=== PATIENT | female | born 1975 | race Caucasian/White ===

== ENCOUNTER 2016-10-26 16:14 | Outpatient (CLI) ==
[2016-06-28 21:43] VITALS: BMI 29.7
[2016-10-26 17:08] LABS: FLU INTERNAL QC INTERNAL QC VALID; RAPID FLU A NEGATIVE (NEGATIVE); RAPID FLU B NEGATIVE (NEGATIVE)
== END 2016-10-26 16:15 | disposition home or self-care (01) ==
LOC: LAB 16:14
PROVIDERS: ATTEND Nurse Practitioner Family
DX: J02.9 Acute pharyngitis, unspecified (principal); R05 Cough
CPT/HCPCS: 87651; 87804; 87880

== ENCOUNTER 2016-12-15 14:08 | Outpatient (CLI) ==
[2016-06-28 21:43] VITALS: BMI 29.7
[2016-12-15 14:32] LABS: BILIRUBIN,URINE Negative (NEGATIVE); KETONES,URINE Negative (NEGATIVE); LEUKOCYTE ESTERASE ,URINE 2+ (NEGATIVE); NITRITE,URINE Negative (NEGATIVE); PH,URINE 8.5 (5-9); PROTEIN,URINE 1+ (NEGATIVE); URINE, BLOOD Trace-lysed (NEGATIVE)
[2016-12-15 14:36] LABS: BASOPHILS # (AUTO) 0.1 K/uL (0-0.2); BASOPHILS % (AUTO) 0.4 % (0.0-3.0); EOSINOPHILS % (AUTO) 0.2 % (0.0-7.0); HEMATOCRIT 41.3 % (37.0-47.0); HEMOGLOBIN 14.2 g/dl (12.0-16.0); IMMATURE GRANULOCYTE % (AUTO) 0.2 % (0.0-5.0); LYMPHOCYTES # (AUTO) 0.8 K/uL (0.60-3.4); LYMPHOCYTES % (AUTO) 6.3 (10.0-50.0); MEAN CORPUSCULAR HEMOGLOBIN 28.2 pg (27.0-31.0); MEAN CORPUSCULAR HGB CONC 34.4 (31.8-35.4); MEAN CORPUSCULAR VOLUME 81.9 fl (81.0-99.0); MONOCYTES # (AUTO) 0.8 K/uL (0.4-2.0); MONOCYTES % (AUTO) 6.1 (0-10); NEUTROPHILS % (AUTO) 86.8; PLATELET COUNT 248 10^3/uL (140-440); RED BLOOD COUNT 5.04 10^6/ul (4.20-5.40)
[2016-12-15 14:37] LABS: ADD URINE MICROSCOPIC YES
[2016-12-15 14:41] LABS: BACTERIA,URINE TRACE (NOT PRESENT)
[2016-12-15 14:44] LABS: FLU INTERNAL QC INTERNAL QC VALID; RAPID FLU A NEGATIVE (NEGATIVE); RAPID FLU B NEGATIVE (NEGATIVE)
--- NOTE | 2016-12-15 14:53 | DI ---
EXAM: KUB. History: Hematuria. Comparison: None available. Findings: Moderate colonic stool. Nonobstructive bowel gas pattern. No free intraperitoneal air. No acute osseous abnormalities. Evaluation of the renal shadows is limited due to obscuration by cristy wel gas. No definite radiopaque urinary tract calculi are identified. Impression: No acute findings. No definite radiopaque urinary tract calculi.
[2016-12-15 17:10] LABS: POTASSIUM 3.6 mmol/L (3.5-5.10)
[2016-12-15 17:11] LABS: ALBUMIN 4.2 g/dL (3.4-5.0); ALBUMIN/GLOBULIN RATIO 1.4; ANION GAP 12.6; BILIRUBIN,TOTAL 0.8 mg/dL (0.00-1.20); BUN/CREATININE RATIO 8.75; CREATININE 0.8 mg/dL (0.60-1.30); TOTAL PROTEIN 7.2 g/dL (6.4-8.2)
== END 2016-12-15 14:09 | disposition home or self-care (01) ==
LOC: RAD 14:08
PROVIDERS: ATTEND Nurse Practitioner Family
DX: R31.9 Hematuria, unspecified (principal); R30.0 Dysuria; R50.9 Fever, unspecified; R52 Pain, unspecified
CPT/HCPCS: 36415; 80053; 81001; 85025; 87086; 87186; 87804

== ENCOUNTER 2017-06-01 21:51 | Emergency (ER) ==
--- NOTE | 2017-06-01 21:55 | ED.PDOC ---
General ED Provider: Dr. SHARMILA OCHOA-ER Chief Complaint: Rash Stated Complaint: albert got this rash and its itching--i also had small black bugs Time Seen by Physician: 21:53 Mode of Arrival: Walk-In Information Source: Patient Primary Care Provider: MADE[facility] Nursing and Triage Documentation Reviewed and Agree: Yes Skin Complaint Exam - Skin Rash/Itching Complaint/Exam Onset/Duration: 3 days Symptoms Are: Still present Initial Severity: Mild Current Severity: Mild Location: arms and neck Potential Exposures: Reports: Insect bite, Mites, Scabies Prior Treatment: prednisone 20mg Aggravating: Reports: None Alleviating: Reports: None Associated Signs and Symptoms: Denies: Difficulty breathing, Fever, Chills Skin Findings: Present: Urticaria, Target lesions, Lesions Differential Diagnoses: Allergic Reaction, Other Review of Systems - Review Of Systems Constitutional: Reports: No symptoms Eyes: Reports: No symptoms Ears, Nose, Mouth, Throat: Reports: No symptoms Respiratory: Reports: No symptoms Cardiac: Reports: No symptoms GI: Reports: No symptoms : Reports: No symptoms Musculoskeletal: Reports: No symptoms Skin: Reports: Lumps, Rash Neurological: Reports: No symptoms Endocrine: Reports: No symptoms Hematologic/Lymphatic: Reports: No symptoms All Other Systems: Reviewed and Negative Past Medical History - Past Medical History Previously Healthy: Yes Endocrine: Reports: None Cardiovascular: Reports: Hypertension Respiratory: Reports: None Hematological: Reports: None Gastrointestinal: Reports: None Genitourinary: Reports: None Neuro/Psych: Reports: None Musculoskeletal: Reports: None Cancer: Reports: None - Surgical History General Surgical History: Reports: Hysterectomy, Unknown - Family History Family History: Reports: Unknown - Social History Smoking Status: Former smoker, Light tobacco smoker Hx Substance Use: No Alcohol Screening: Occasionally Physical Exam - Physical Exam Appearance: Well-appearing, No pain distress, Well-nourished Eyes: BRANDON, EOMI, Conjunctiva clear ENT: Ears normal, Nose normal, Oropharynx normal Neck: Supple Respiratory: Airway patent Cardiovascular: RRR, Pulses normal, No rub, No murmur GI/: Soft Musculoskeletal: Normal strength Skin: Warm Neurological: Sensation intact, Motor intact, Reflexes intact, Cranial nerves intact, Alert, Oriented Psychiatric: Affect appropriate, Mood appropriate Critical Care Note - Critical Care Note Total Time (mins): 0 Departure - Departure Time of Disposition: 21:55 Disposition: HOME SELF-CARE Discharge Problem: Insect bites Qualifiers: Encounter type: initial encounter Qualified Code(s): W57.XXXA - Bitten or stung by nonvenomous insect and other nonvenomous arthropods, initial encounter Instructions: Insect Bite or Sting (ED) Condition: Good Pt referred to PMD for follow-up: Yes Additional Instructions: increase prednisone to 40mg x 3 days then 20mg x 3 days then 10mg x 3 days-- ernesto 180mg q daily #30..tagamet 400mg bid #30--can use benadryl 50mg q 4hrs prn itching ---f/u clinic next week if not improving Allergies/Adverse Reactions: Allergies ampicillin Allergy (Intermediate, Verified 06/28/16 21:42) rash methylprednisolone [From Medrol] Allergy (Intermediate, Verified 06/28/16 21:42) rash Penicillins Allergy (Intermediate, Verified 06/28/16 21:42) rash clindamycin Adverse Reaction (Verified 06/28/16 21:42) Home Medications: Ambulatory Orders Meloxicam [Mobic] 7.5 mg PO DAILY 12/09/15 Hydrocodone Bit/Acetaminophen [[place] 7.5-325] 1 tab PO TID 05/13/16 Tizanidine HCl [Zanaflex] 4 mg PO BEDTIME 05/31/17 Disposition Discussed With: Patient
[2017-06-01 22:19] VITALS: BP 150/97; TEMP 98; BMI 29.2
== END 2017-06-01 22:05 | disposition home or self-care (01) ==
LOC: ED 21:51
DX: S10.96XA Insect bite of unspecified part of neck, initial encounter (principal); S40.862A Insect bite (nonvenomous) of left upper arm, initial encounter; S40.861A Insect bite (nonvenomous) of right upper arm, initial encounter; W57.XXXA Bitten or stung by nonvenomous insect and other nonvenomous arthropods, initial encounter
CPT/HCPCS: 99282

== ENCOUNTER 2017-11-06 15:30 | Outpatient (CLI) | payer OTHER | END 2017-11-06 15:31 | disposition home or self-care (01) | LOC: LAB 15:30 | PROVIDERS: ATTEND Emergency Medicine | DX: R68.89 Other general symptoms and signs (principal); J06.9 Acute upper respiratory infection, unspecified | CPT/HCPCS: 87651; 87804 ==

== ENCOUNTER 2018-10-27 23:05 | Emergency (ER) | payer OTHER ==
[2018-10-27 23:15] VITALS: TEMP 98.7; BMI 38.2
--- NOTE | 2018-10-27 23:38 | ED.PDOC ---
General ED Provider: Dr. 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 She states that they have both been more swollen lately. cannot find a doctor since she does not want to give up her chronic pain medications. She admits to eating fastfoods daily. She tries to keep feet elevated and use stockings. Time Seen by Physician: 23:32 Mode of Arrival: Walk-In Information Source: Patient Primary Care Provider: CHERYL CHAN Nursing and Triage Documentation Reviewed and Agree: Yes Does patient meet sepsis criteria?: No If yes, has appropriate treatment been initiated?: No System Inflammatory Response Syndrome: Not Applicable Sepsis Protocol: For patient's 13 years and over: Temp is 96.8 and below OR 101 and greater Pulse >90 BPM Resp >20/minute Acutely Altered Mental Status Are patient's symptoms suggestive of a new infection, such as: -Pneumonia -Skin, Soft Tissue -Endocarditis -UTI -Bone, Joint Infection -Implantable Device -Acute Abdominal Infection -Wound Infection -Meningitis -Blood Stream Catheter Infection -Unknown Musculoskeletal Complaint Exam - Lower Extremity Complaint/Exam Location of Pain: Reports: Right, Left, Leg Mechanism of Injury: Reports: No known trauma Onset/Duration: months Symptoms Are: Still present Location: Reports: Diffuse Character: Reports: Unable to describe DVT Risk Factors: Reports: None Septic Arthritis Risk Factors: Reports: None Lower Extremity Findings: Present: Swelling (bilaterally and symetric 2+ pittin edema. ) Compartment Syndrome Risk Factors: Absent: Pain, Paralysis, Pallor, Pulselessness, Paresthesias Sherwin's Sign Present: No Differential Diagnoses: Other (lower extrmity edema ) Review of Systems - Review Of Systems Constitutional: Reports: No symptoms Eyes: Reports: No symptoms Ears, Nose, Mouth, Throat: Reports: No symptoms Respiratory: Reports: No symptoms Cardiac: Reports: No symptoms GI: Reports: No symptoms : Reports: No symptoms Musculoskeletal: Reports: Back pain, Joint pain, Joint swelling Skin: Reports: No symptoms Neurological: Reports: Anxiety Endocrine: Reports: No symptoms Hematologic/Lymphatic: Reports: No symptoms All Other Systems: Reviewed and Negative Past Medical History - Past Medical History Previously Healthy: Yes Endocrine: Reports: None Cardiovascular: Reports: Hypertension Respiratory: Reports: None Hematological: Reports: None Gastrointestinal: Reports: None Genitourinary: Reports: None Neuro/Psych: Reports: None Musculoskeletal: Reports: Arthritis, Back Pain, Joint Pain Cancer: Reports: None Last Menstrual Period: HAS HAD A HYSTERECTOMY - Surgical History General Surgical History: Reports: Hysterectomy, Other (vein surgery bilateral lower extremities ) - Family History Family History: Reports: Unknown - Social History Smoking Status: Current every day smoker, Light tobacco smoker Hx Substance Use: No Alcohol Screening: Occasionally - Immunizations Tetanus Shot up to Date: (UNKNOWN) Physical Exam - Physical Exam Appearance: Ill-appearing, Obese Ill-appearing: Mild Pain Distress: Moderate (back and neck) Eyes: BRANDON, EOMI, Conjunctiva clear ENT: Ears normal, Nose normal, Oropharynx normal Neck: Supple Respiratory: Airway patent, Breath sounds clear, Breath sounds equal, Respirations nonlabored Cardiovascular: RRR, Pulses normal, No rub, No murmur GI/: Soft, Nontender, No masses, Bowel sounds normal, No Organomegaly Musculoskeletal: Normal strength, ROM intact, No calf tenderness, Edema Skin: Warm, Dry, Normal color Neurological: Sensation intact, Motor intact, Reflexes intact, Cranial nerves intact, Alert, Oriented Psychiatric: Anxious Critical Care Note - Critical Care Note Total Time (mins): 0 Course - Course Orders, Labs, Meds: Orders Category Date Time Status Hydralazine HCl [Apresoline] MEDS 10/27/18 23:53 Discontinued 25 mg PO ONCE STA Medications Discontinued Medications Generic Name Dose Route Start Last Admin Trade Name Freq PRN Reason Stop Dose Admin Hydralazine HCl 25 mg 10/27/18 23:53 Apresoline PO 10/27/18 23:54 ONCE STA Vital Signs: Temp Pulse Resp BP Pulse Ox 10/27/18 23:52 92 H 18 179/113 H 96 10/27/18 23:05 98.7 F 93 H 18 171/108 H 96 Departure - Departure Time of Disposition: 23:41 Disposition: HOME SELF-CARE Discharge Problem: Edema of lower extremity Hypertension Qualifiers: Hypertension type: essential hypertension Qualified Code(s): I10 - Essential ( primary) hypertension Instructions: Leg Edema (ED), Hypertension (ED), Venous Insufficiency (DC) Condition: Stable Pt referred to PMD for follow-up: Yes IPMP verified?: No Additional Instructions: AVOID SALTY FOOD, FAST FOODS AND LUNCH MEATS HAVE A LOT OF SALT SO DOES PIZZA. MAY USE SEASONING OR MRS EUGENE. FIND A PRIMARY CARE PROVIDER WHO CAN MONITOR YOU BLOOD PRESSURE AND LEG EDEMA. take medication ( HCTZ ) as prescribed daily for blood pressure and Edema. Prescriptions: Hydrochlorothiazide 12.5 mg PO DAILY LAB #30 tablet Allergies/Adverse Reactions: Allergies ampicillin Allergy (Intermediate, Verified 10/27/18 23:16) rash methylprednisolone [From Medrol] Allergy (Intermediate, Verified 10/27/18 23:16) rash Penicillins Allergy (Intermediate, Verified 10/27/18 23:16) rash clindamycin Adverse Reaction (Verified 10/27/18 23:16) Home Medications: Ambulatory Orders Hydrocodone Bit/Acetaminophen [[place] 7.5-325] 1 tab PO QID 05/13/16 Hydrochlorothiazide 12.5 mg PO DAILY LAB #30 tablet 10/27/18 Naproxen Sodium [Aleve] 1 tab PO BID PRN 10/27/18 Disposition Discussed With: Patient, Family
[2018-10-27 23:52] VITALS: BP 179/113
[2018-10-27] MEDS ORDERED: APRESOLINE PO STA (23:53)
== END 2018-10-28 00:38 | disposition home or self-care (01) ==
LOC: ED 23:05
DX: R60.0 Localized edema (principal); I10 Essential (primary) hypertension; I87.2 Venous insufficiency (chronic) (peripheral); F17.210 Nicotine dependence, cigarettes, uncomplicated; Z79.899 Other long term (current) drug therapy
CPT/HCPCS: 99282

== ENCOUNTER 2018-11-25 23:34 | Emergency (ER) ==
[2018-11-25 23:38] VITALS: BP 138/92; TEMP 98.5; BMI 35.4
--- NOTE | 2018-11-26 00:21 | CT ---
EXAM: CT brain without contrast HISTORY: Pain and weakness TECHNIQUE: CT of the brain without intravenous contrast FINDINGS: There is no acute hemorrhage midline shift or mass effect. No hydrocephalus or abnormal e xtra-axial fluid collection. No significant parenchymal attenuation abnormality. The bony cranium a ppears normal. The visualized paranasal sinuses are clear. Soft tissues without significant abnormal ity. IMPRESSION: 1. CT of the brain within normal limits.
--- NOTE | 2018-11-26 00:29 | CT ---
Exam: CT of the abdomen pelvis without contrast History: Abdominal pain Technique: [address] of the abdomen and pelvis without intravascular contrast FINDINGS: There is a 3.7 mm nodule in the posterior right lower lobe. The lung bases are clear othe rwise. No significant liver abnormality. The adrenals, pancreas and spleen are unremarkable. The s tomach and hiatus are unremarkable.The gallbladder appears normal. Kidneys and proximal collecting s ystem are unremarkable. The appendix is normal. Bowel loops demonstrate normal caliber. No inflama tory change seen in the mesentery or retroperitoneum. Vascular structures appear normal by noncontra st CT. There are some prominent but sub pathologic periaortic lymph nodes measuring maximum short ax is of 8 mm. Prior hysterectomy. Normal urinary bladder. Normal pelvic bowel loops. No pelvic fat inflammation. No acute findings of the skeleton. Impression: 1. No inflammatory process, bowel or urinary obstruction is seen. 2. Prominent, sub pathologic periaortic lymph nodes are nonspecific 3. The there is a 3.7 mm indeterminate nodule of the right lower lobe. Consensus recomendations for nodule 6mm or less: Low Risk patient, no follow-up needed. High Risk patient, Optional follow-up CT at 12 mo
[2018-11-26] MEDS: SODIUM CHLORIDE 1,000 ML IV STA (01:33)
--- NOTE | 2018-11-26 05:31 | ED.PDOC ---
General ED Provider: Dr. SHARMILA OCHOA-ER Chief Complaint: Abdominal Pain Stated Complaint: all of my muscles are cramping--i think its myh bp meds---it has a fluid pill in it Time Seen by Physician: 23:40 Mode of Arrival: Walk-In Information Source: Patient Exam Limitations: No limitations Primary Care Provider: CHERYL CHAN Nursing and Triage Documentation Reviewed and Agree: Yes Does patient meet sepsis criteria?: No System Inflammatory Response Syndrome: Not Applicable Sepsis Protocol: For patient's 13 years and over: Temp is 96.8 and below OR 101 and greater Pulse >90 BPM Resp >20/minute Acutely Altered Mental Status Are patient's symptoms suggestive of a new infection, such as: -Pneumonia -Skin, Soft Tissue -Endocarditis -UTI -Bone, Joint Infection -Implantable Device -Acute Abdominal Infection -Wound Infection -Meningitis -Blood Stream Catheter Infection -Unknown Musculoskeletal Complaint Exam - Lower Extremity Complaint/Exam Location of Pain: Reports: Leg Mechanism of Injury: Reports: No known trauma Symptoms Are: Resolved Onset of Pain: Reports: Seconds Initial Severity: Mild Current Severity: Mild Location: Reports: Diffuse Character: Reports: Spasmodic Aggravating: Reports: Movement Able to Bear Weight: Yes Associated Signs and Symptoms: Denies: Swelling, Redness, Bruising, Fever, Weakness, Numbness, Tingling Lower Extremity Findings: Absent: Swelling, Ecchymosis, Abnormal contour, Rotation, Ligamentous instability, Laceration, Erythema, Warmth, Blisters, Other joint pain, Foreign body, Tenderness, Limited range of motion NV Bundle Intact Distal to Injury: Yes Compartment Syndrome Risk Factors: Present: Pain Sherwin's Sign Present: No Differential Diagnoses: Other Review of Systems - Review Of Systems Constitutional: Reports: No symptoms Eyes: Reports: No symptoms Ears, Nose, Mouth, Throat: Reports: No symptoms Respiratory: Reports: No symptoms Cardiac: Reports: No symptoms GI: Reports: No symptoms : Reports: No symptoms Musculoskeletal: Reports: Muscle pain Skin: Reports: No symptoms Neurological: Reports: No symptoms Endocrine: Reports: No symptoms Hematologic/Lymphatic: Reports: No symptoms All Other Systems: Reviewed and Negative Past Medical History - Past Medical History Previously Healthy: Yes Endocrine: Reports: None Cardiovascular: Reports: Hypertension Respiratory: Reports: None Hematological: Reports: None Gastrointestinal: Reports: None Genitourinary: Reports: None Neuro/Psych: Reports: None Musculoskeletal: Reports: Arthritis, Back Pain, Joint Pain Cancer: Reports: None Last Menstrual Period: none - Surgical History General Surgical History: Reports: Hysterectomy, Other (vein surgery bilateral lower extremities ) - Family History Family History: Reports: Unknown - Social History Smoking Status: Current every day smoker, Light tobacco smoker Hx Substance Use: No Alcohol Screening: None - Immunizations Tetanus Shot up to Date: Yes Physical Exam - Physical Exam Appearance: Well-appearing, No pain distress, Well-nourished Eyes: BRANDON, EOMI, Conjunctiva clear ENT: Ears normal, Nose normal, Oropharynx normal Neck: Supple Respiratory: Airway patent, Breath sounds clear, Breath sounds equal, Respirations nonlabored Cardiovascular: RRR, Pulses normal, No rub, No murmur GI/: Soft, Nontender, No masses, Bowel sounds normal, No Organomegaly Musculoskeletal: Normal strength, ROM intact, No edema, No calf tenderness Skin: Warm Neurological: Sensation intact Psychiatric: Affect appropriate Interpretation - Radiology Interpretation Radiology Interpretation By: Radiologist Radiology Results: Negative Exam Interpreted: CT Scan Critical Care Note - Critical Care Note Total Time (mins): 0 Course - Course Hematology/Chemistry: 11/26/18 00:15 11/26/18 00:15 Orders, Labs, Meds: Lab Review 11/25/18 11/26/18 11/26/18 23:50 00:15 00:15 WBC 6.39 RBC 4.70 Hgb 12.9 Hct 38.0 MCV 80.9 L MCH 27.4 MCHC 33.9 RDW Coeff of Rosal[place] 12.3 Plt Count 278 Immature Gran % (Auto) 0.3 Neut % (Auto) 64.5 Lymph % (Auto) 18.8 [place] % (Auto) 11.4 H Eos % (Auto) 4.1 Baso % (Auto) 0.9 Immature Gran # (Auto) 0.0 Neut # (Auto) 4.1 Lymph # (Auto) 1.2 [place] # (Auto) 0.7 Eos # (Auto) 0.3 Baso # (Auto) 0.1 ESR Sodium 137.1 Potassium 3.94 Chloride 102.3 Carbon Dioxide 25.6 Anion Gap 13.14 BUN 8.6 Creatinine 0.69 Estimated GFR (MDRD) 94.00 BUN/Creatinine Ratio 12.46 Glucose 100.3 Calcium 8.79 Total Bilirubin 0.25 AST 28.5 ALT 20.9 Alkaline Phosphatase 58.2 Total Creatine Kinase 85.7 Troponin I < 0.012 Total Protein 7.03 Albumin 3.98 Globulin 3.05 Albumin/Globulin Ratio 1.30 TSH Urine Color Yellow Urine Clarity Clear Urine pH 6.5 Ur Specific [place] 1.015 Urine Protein Negative Urine Glucose (UA) Negative Urine Ketones Negative Urine Blood Negative Urine Nitrite Negative Urine Bilirubin Negative Urine Urobilinogen 0.2 Ur Leukocyte Esterase Negative 11/26/18 11/26/18 00:15 00:15 WBC RBC Hgb Hct MCV MCH MCHC RDW Coeff of [place] Plt Count Immature Gran % (Auto) Neut % (Auto) Lymph % (Auto) [place] % (Auto) Eos % (Auto) Baso % (Auto) Immature Gran # (Auto) Neut # (Auto) Lymph # (Auto) [place] # (Auto) Eos # (Auto) Baso # (Auto) ESR 8 Sodium Potassium Chloride Carbon Dioxide Anion Gap BUN Creatinine Estimated GFR (MDRD) BUN/Creatinine Ratio Glucose Calcium Total Bilirubin AST ALT Alkaline Phosphatase Total Creatine Kinase Troponin I Total Protein Albumin Globulin Albumin/Globulin Ratio TSH 2.160 Urine Color Urine Clarity Urine pH Ur Specific [place] Urine Protein Urine Glucose (UA) Urine Ketones Urine Blood Urine Nitrite Urine Bilirubin Urine Urobilinogen Ur Leukocyte Esterase Orders Category Date Time Status EKG-(ED ONLY) Stat CARDIO 11/25/18 23:48 Completed ED IV/MEDIPORT/POWERPORT .ONCE EMERGENCY 11/26/18 01:07 Active CBC W/ AUTO DIFF Stat LAB 11/25/18 23:48 Completed COMPREHENSIVE METABOLIC PANEL Stat LAB 11/25/18 23:48 Completed CREATINE KINASE Stat LAB 11/25/18 23:48 Completed ESR Stat LAB 11/26/18 00:15 Completed THYROID STIMULATING HORMONE Stat LAB 11/26/18 00:15 Completed TROPONIN I Stat LAB 11/25/18 23:48 Completed URINALYSIS C & S IF INDICATED Stat LAB 11/25/18 23:50 Completed 0.9 % Sodium Chloride [Saline Flush] MEDS 11/26/18 01:07 Ordered 1 syr IVF PRN PRN Sodium Chloride 0.9% [Sodium Chloride] 1,000 ml MEDS 11/26/18 01:[address] ABDOMEN/PELVIS WO CONTRAST Stat RADS 11/25/18 23:[address] HEAD W/O CONTRAST Stat RADS 11/25/18 23:45 Completed Medications Generic Name Dose Route Start Last Admin Trade Name Freq PRN Reason Stop Dose Admin Sodium Chloride 1 syr 11/26/18 01:07 Saline Flush IVF PRN PRN To flush IV Discontinued Medications Generic Name Dose Route Start Last Admin Trade Name Freq PRN Reason Stop Dose Admin Sodium Chloride 1,000 mls @ 250 mls/hr 11/26/18 01:07 11/26/18 01:33 Sodium Chloride IV 11/26/18 05:06 250 mls/hr BOLUS STA Administration Vital Signs: Temp Pulse Resp BP Pulse Ox 11/25/18 23:35 98.5 F 89 18 138/92 H 97 Departure - Departure Time of Disposition: 05:31 Disposition: HOME SELF-CARE Discharge Problem: Muscle spasm, Lung nodule Instructions: Muscle Spasm (ED) Condition: Good Pt referred to PMD for follow-up: Yes IPMP verified?: No Additional Instructions: talk to your pcp about change in bp meds and also setting up surveillance xrays of lung nodule(RLL) Allergies/Adverse Reactions: Allergies ampicillin Allergy (Intermediate, Verified 11/25/18 23:39) rash methylprednisolone [From Medrol] Allergy (Intermediate, Verified 11/25/18 23:39) rash Penicillins Allergy (Intermediate, Verified 11/25/18 23:39) rash clindamycin Adverse Reaction (Verified 11/25/18 23:39) Home Medications: Ambulatory Orders Hydrocodone Bit/Acetaminophen [[place] 7.5-325] 1 tab PO QID 05/13/16 Hydrochlorothiazide 12.5 mg PO DAILY LAB #30 tablet 10/27/18 Disposition Discussed With: Patient, Family
== END 2018-11-26 05:40 | disposition home or self-care (01) ==
LOC: ED 23:34
DX: R10.9 Unspecified abdominal pain (principal); R25.2 Cramp and spasm; M79.669 Pain in unspecified lower leg; Z72.0 Tobacco use; M62.838 Other muscle spasm; R91.1 Solitary pulmonary nodule
CPT/HCPCS: 36415; 80053; 81001; 82550; 84443; 84484; 85025; 85651; 93005; 93010; 96360; 96361; 99284

== ENCOUNTER 2025-08-27 22:05 | Inpatient (IN) ==
[2025-08-27] MEDS ORDERED: DECADRON IM STA (22:17)
--- NOTE | 2025-08-27 22:20 | ED.PDOC ---
General [facility] ED Provider: Dr. YEIMI MANN MD Chief Complaint: Cough Stated Complaint: Patient is a 50-year-old female that reported to the emergency department for cough, shortness of breath, wheezing, and fever and fatigue for the past 2 days. Patient stated that she works over in [place] and came back from [place] the other nights with a broken window when it was in the 20s Fahrenheit. Patient stated that since that time she has had a productive cough. Patient stated that her sputum is clear. Patient stated that she does have a history of COPD. Patient is seen by pulmonology in [place]. Patient stated that she was seen earlier this year by pulmonology. Patient stated that she has had some wheezing with her cough. Patient stated that she has not taken her inhaler today because she has not felt well. Patient stated that she has not had any nausea or vomiting. Patient stated that her highest temperature was 101 Fahrenheit. Patient stated that she did not take anything for fever because she did not know what she could take. Patient stated that she has not been around any other sick contacts that she knows of. Patient stated that she has had a sore throat but she does not have tonsils as she had these removed when she was in her 40s. Patient denied any dizziness, syncope, loss of consciousness, chest pain, or any other acute symptoms not currently mentioned in his HPI. Patient's vital signs are stable except for patient's O2 sat is between 90 and 93% on room air. Patient's GCS is 15. Patient is able to speak in full sentences in the emergency department. Time Seen by Provider: 08/27/25 22:10 Mode of Arrival: Walk-In Information Source: Patient Exam Limitations: No limitations Primary Care Provider: KENDELL CINTRON APRN Nursing and Triage Documentation Reviewed and Agree: Yes Opioid Naive vs. Tolerant What is Opioid Naive?: *Opioid Naive implies the patient is not already taking opioids or not chronically receiving opioids on a daily basis. *PRN dosing is not "usually" associated with tolerance. *Patients are at higher risk of over-sedation and aspiration. What is Opioid Tolerant?: *Opioid Tolerance implies less than the expected response to an opioid. *Acquired tolerance is defined by the patient taking 60mg of oral morphine daily (or equianalgesic dose of another opioid) for 1 week or more. *Often associated with chronic pain. *May take more than usual dose to achieve desired pain control. Review of Systems Review Of Systems Constitutional: Reports No symptoms and Fever Ears, Nose, Mouth, Throat: Reports Nose discharge Respiratory: Reports Cough, Shortness of Breath and Wheezing All Other Systems: Reviewed and Negative [facility] Medical History (Updated 08/27/25 @ 23:40 by YEIMI MANN MD) History of skin cancer Z85.828 - Personal history of other malignant neoplasm of skin (ICD-10) Lumbar radiculopathy M54.16 - Radiculopathy, lumbar region (ICD-10) Social History Smoking and tobacco status: Current every day smoker Surgical History vein ablation bilat legs 2015 Status post tonsillectomy 2015 Z90.89 - Acquired absence of other organs (ICD-10) Status post hysterectomy Z90.710 - Acquired absence of both cervix and uterus (ICD-10) Female Reproductive History Menstrual Hx Hysterectomy: Yes Hx Tubal Ligation: No Physical Exam Physical Exam Appearance: Reports Ill-appearing Ill-appearing: Mild Pain Distress: None Eyes: Reports BRANDON, EOMI and Conjunctiva clear ENT: Reports Nose normal, Oropharynx normal and Other (Patient had a right submandibular lymphadenopathy.) Neck: Supple Respiratory: Reports Airway patent, Breath sounds equal, Breath sounds diminished (Breath sounds diminished on the left lower lung field.), Crackles (Left lung middle and lower field crackles noted on auscultation.) and Wheezes (Scattered inspiratory and expiratory wheezes); Denies Airway obstructed, Rhonchi or Retractions Cardiovascular: Reports RRR GI/: Reports Soft, Nontender and Bowel sounds normal Musculoskeletal: Reports Normal strength Skin: Reports Warm, Dry and Normal color Neurological: Reports Sensation intact, Motor intact, Alert and Oriented Psychiatric: Reports Affect appropriate Physician Progress Note Physician Progress Note: Patient is a 50-year-old female that reported to the emergency department for cough, shortness of breath, wheezing, and fever and fatigue for the past 2 days. Patient stated that she works over in [employer] and came back from [place] the other nights with a broken window when it was in the 20s Fahrenheit. Patient stated that since that time she has had a productive cough. Patient stated that her sputum is clear. Patient stated that she does have a history of COPD. Patient is seen by pulmonology in [place]. Patient stated that she was seen earlier this year by pulmonology. Patient stated that she has had some wheezing with her cough. Patient stated that she has not taken her inhaler today because she has not felt well. Patient stated that she has not had any nausea or vomiting. Patient stated that her highest temperature was 101 Fahrenheit. Patient stated that she did not take anything for fever because she did not know what she could take. Patient stated that she has not been around any other sick contacts that she knows of. Patient stated that she has had a sore throat but she does not have tonsils as she had these removed when she was in her 40s. Patient denied any dizziness, syncope, loss of consciousness, chest pain, or any other acute symptoms not currently mentioned in his HPI. Patient's vital signs are stable except for patient's O2 sat is between 90 and 93% on room air. Patient's GCS is 15. Patient is able to speak in full sentences in the emergency department. - VBG shows patient has a pH of 7.48, pCO2 40, pO2 of 68, and bicarb of 29.8. - Patient O2 sat on room air is between 90 and 93%. Will add 2 L nasal cannula (for acute hypoxemic respiratory failure) to keep the patient's O2 sat above 94% . - Will give the patient IV Decadron 6 mg and a DuoNeb treatment once for bronchospasms. - Patient is tachycardic but is afebrile. Will give patient IV lactated ringer 1 L bolus for dehydration. - Will order a chest x-ray to rule out pneumonia. - Will order baseline labs, lactic acid, and a flu and COVID and strep test. - Reassessed patient after initial DuoNeb treatment and patient still had wheezing throughout the entire lung desai. Will order second DuoNeb treatment. - Will give patient IV doxycycline 100 mg once in the emergency department for COPD exacerbation. - Chest x-ray shows a left upper and lower lobe pneumonia. This was initially interpreted by the ER physician. This was later confirmed by radiology. - Will give the patient IV ceftriaxone 1 g for her typical pathogens for community-acquired pneumonia. Patient has already been given IV doxycycline which will cover atypical pathogens for CAP. - EKG shows sinus tachycardia with a rate of 109 bpm. Low voltage QRS noted. No acute STEMI noted. EKG interpreted by ER physician. -Reassessed patient after second DuoNeb treatment. Patient still has mild wheezing but definitely has improvement from when she arrived. Patient on 2 L nasal cannula to keep her O2 sat above 94%. - Will contact hospitalist for admission for acute hypoxemic respiratory failure in the setting of COPD exacerbation and Pneumonia. - Spoke to hospitalist, Sherrie TAYLOR, and discussed patient's acute hypoxemic respiratory failure and that the patient is on 2 L nasal cannula to keep her above 94%. I discussed the patient's pneumonia in the left upper and lower lobes. I discussed the patient's treatment for pneumonia and for her COPD exacerbations with 2 DuoNeb treatments and IV Decadron 6 mg. I also discussed the patient's leukocytosis of 15,000. Aneta has agreed to admit this patient as she meets inpatient criteria. Patient's vital signs are stable at time of admission. Critical Care Note Critical Care Note Total Critical Care Time (mins): 60 Comments: Critical Care Procedure Note Authorized and Performed by: Dr. Yeimi Mann MD, MPH Total critical care time: 60 minutes Due to a high probability of clinically significant, life threatening deterioration, the patient required my highest level of preparedness to intervene emergently and I personally spent this critical care time directly and personally managing the patient. This critical care time included obtaining a history; examining the patient; pulse oximetry; ordering and review of studies; arranging urgent treatment with development of a management plan; evaluation of patient's response to treatment; frequent reassessment; and, discussions with other providers. This critical care time was performed to assess and manage the high probability of imminent, life-threatening deterioration that could result in multi-organ failure. It was exclusive of separately billable procedures and treating other patients and teaching time. Please see MDM section and the rest of the note for further information on patient assessment and treatment. Course Course 08/27/25 22:47 08/27/25 22:47 Orders, Labs, Meds: Lab Review 08/27/25 08/27/25 08/27/25 22:30 22:46 22:47 WBC 15.69 H RBC 4.41 Hgb 12.2 Hct 38.3 MCV 86.8 MCH 27.7 MCHC 31.9 RDW Coeff of Rosalina 13.0 Plt Count 254 Immature Gran % (Auto) 0.4 Neut % (Auto) 85.7 H Lymph % (Auto) 6.1 L Summers % (Auto) 7.4 Eos % (Auto) 0.1 Baso % (Auto) 0.3 Neut # (Auto) 13.5 H Lymph # (Auto) 1.0 Summers # (Auto) 1.2 Eos # (Auto) 0.0 Baso # (Auto) 0.1 Immature Gran # (Auto) 0.1 VBG pH 7.48 H VBG pCO2 40 VBG pO2 68 H VBG HCO3 29.8 H VBG O2 Saturation 94.6 H Sodium 134.4 L Potassium 3.94 Chloride 100.1 Carbon Dioxide 25.3 Anion Gap 12.94 BUN 10.4 Creatinine 0.80 Estimated GFR (MDRD) 77.00 BUN/Creatinine Ratio 13.00 Glucose 114.4 H Lactic Acid 0.75 Calcium 8.87 Total Bilirubin 1.18 AST 28.2 ALT 16.8 Alkaline Phosphatase 65.7 Total Protein 7.67 Albumin 4.18 Globulin 3.49 Albumin/Globulin Ratio 1.19 Influ A Molecular Assay Negative by naat Influ B Molecular Assay Negative by naat SARS CoV-2 RNA Rapid EMMETT Negative Orders Category Date Time Status ADMIT PATIENT INPATIENT .TO [facility] (MONITORED BED) ADMISSION 08/27/25 23:40 Active EKG-(ED & IP/OBS ONLY) Stat CARDIO 08/27/25 22:45 Ordered NEBULIZER TREATMENT Routine CARDIO 08/27/25 23:39 Ordered NEBULIZER TREATMENT Stat CARDIO 08/27/25 22:17 Ordered NEBULIZER TREATMENT Stat CARDIO 08/27/25 22:40 Ordered OXYGEN Routine CARDIO 08/27/25 23:39 Ordered ACTIVITY .Up ad Catherine CARE 08/27/25 23:38 Active INTAKE & OUTPUT Q8HR CARE 08/27/25 23:38 Active TELEMETRY MONITORING TELE CARE 08/27/25 23:40 Active VITAL SIGNS Q4HR CARE 08/27/25 23:38 Active CARDIAC DIET DIETARY 08/28/25 Breakfast Ordered IV [ED IV/MEDIPORT/POWERPORT] .ONCE EMERGENCY 08/27/25 22:28 Active CBC W/ AUTO DIFF DAILY@0600 LAB 08/28/25 06:00 Ordered CBC W/ AUTO DIFF DAILY@0600 LAB 08/29/25 06:00 Ordered CBC W/ AUTO DIFF Stat LAB 08/27/25 22:47 Completed CMP [COMPREHENSIVE METABOLIC PANEL] Stat LAB 08/27/25 22:47 Completed COMPREHENSIVE METABOLIC PANEL DAILY@0600 LAB 08/28/25 06:00 Ordered COMPREHENSIVE METABOLIC PANEL DAILY@0600 LAB 08/29/25 06:00 Ordered COVID [SARS COV-2 RNA RAPID EMMETT] Stat LAB 08/27/25 22:30 Completed FLU A & B MOLECULAR [FLU A/B MOLECULAR] Stat LAB 08/27/25 22:30 Completed LACTIC ACID Stat LAB 08/27/25 22:47 Completed LEGIONELLA URINARY ANTIGEN Stat LAB 08/27/25 23:38 Uncollected RAPID STREP SCREEN [MOLECULAR GROUP A STREP] Stat LAB 08/27/25 22:30 Completed STREP PNEUMO AG, URINE Stat LAB 08/27/25 23:38 Uncollected VBG [VENOUS BLOOD GAS] Stat LAB 08/27/25 22:46 Completed 0.9 % Sodium Chloride [Saline Flush] Meds 08/27/25 22:28 Active 1 syr IVF PRN PRN 1 gm/50 ml IV Daily Akiko Meds 08/28/25 21:00 Ordered Ceftriaxone/D5w 1 gm Premix [Rocephin 1 gm/50 ml D5w] 1 gm in 50 ml IV DAILY Acetaminophen [Tylenol] Meds 08/27/25 23:38 Ordered 650 mg PO Q4H PRN Benzonatate [Tessalon Perles] Meds 08/27/25 23:38 Ordered 100 mg PO TID PRN Ceftriaxone 1 gm Vial [Rocephin 1 gm Vial] Meds 08/27/25 23:31 Discontinued 1 gm IVP ONCE ONE Dexamethasone Sod Phosphate [Decadron] Meds 08/27/25 22:28 Discontinued 6 mg IVP ONCE STA Doxycycline Hyclate Inj [Doxy-100] 100 mg Meds 08/27/25 22:47 Active 0.9 % Sodium Chloride [Sodium Chloride 100Ml] 100 ml IV ONCE Doxycycline Hyclate [Doxycycline] Meds 08/28/25 09:00 Ordered 100 mg PO Q12HR Guaifenesin/Dextromethorphan [Robitussin Dm Syrup] Meds 08/27/25 23:38 Ordered 10 ml PO Q4H PRN Ipratropium/Albuterol Neb [Duoneb] Meds 08/27/25 22:17 Discontinued 3 ml NEB ONCE STA Ipratropium/Albuterol Neb [Duoneb] Meds 08/27/25 22:40 Discontinued 3 ml NEB ONCE STA Ipratropium/Albuterol Neb [Duoneb] Meds 08/27/25 23:38 Ordered 3 ml NEB RTQ4H PRN Methylprednisolone Sod Succ/Pf [Solu-Medrol 40 mg] Meds 08/28/25 05:00 Ordered 40 mg IVP Q8HR Ondansetron HCl/Pf [Zofran Sdv] Meds 08/27/25 23:38 Ordered 4 mg IVP Q6H PRN Ringers Lactated Solution [Lactated Ringers] 1,000 ml Meds 08/27/25 22:28 Discontinued IV BOLUS CHEST, 1V AP ONLY Stat RADS 08/27/25 22:16 Completed Medications Generic Name Dose Route Start Last Admin Trade Name Freq PRN Reason Stop Dose Admin Doxycycline Hyclate 100 mg/ 100 mls @ 50 mls/hr 08/27/25 22:47 08/27/25 23:24 Sodium Chloride IV 08/28/25 00:46 50 mls/hr ONCE ONE Administration Sodium Chloride 1 syr 08/27/25 22:28 0.9% Sodium Chloride 10 Ml Disp.Syrin IVF PRN PRN To flush IV Discontinued Medications Generic Name Dose Route Start Last Admin Trade Name Freq PRN Reason Stop Dose Admin Albuterol/Ipratropium 3 ml 08/27/25 22:17 08/27/25 23:14 Ipratropium/Albuterol Vial.Neb NEB 08/27/25 22:18 3 ml ONCE STA Administration Albuterol/Ipratropium 3 ml 08/27/25 22:40 08/27/25 23:20 Ipratropium/Albuterol Vial.Neb NEB 08/27/25 22:41 3 ml ONCE STA Administration Ceftriaxone Sodium 1 gm 08/27/25 23:31 Ceftriaxone 1 Gm Vial IVP 08/27/25 23:32 ONCE ONE Dexamethasone Sodium Phosphate 6 mg 08/27/25 22:28 08/27/25 23:05 Dexamethasone Sod Phos 10 Mg/Ml Inj IVP 08/27/25 22:29 6 mg ONCE STA Administration Lactated Ringer's 1,000 mls @ 1,000 mls/hr 08/27/25 22:28 08/27/25 23:06 Lactated Ringers IV 08/27/25 23:27 1,000 mls/hr BOLUS ONE Administration Vital Signs: Temp Pulse Resp BP Pulse Ox 08/27/25 22:09 97.9 F 116 H 20 127/78 95 Discharge Plan Discharge Patient Disposition: ADMITTED INPATIENT Discharge Problem: Acute exacerbation of chronic obstructive pulmonary disease, Acute hypoxemic respiratory failure, Community acquired pneumonia of left lower lobe of lung, Community acquired pneumonia of left upper lobe of lung Did you review [place] STATEMENT [employer] for ALL controlled substances?: Not Applicable ED Provider: YEIMI MANN Condition: Stable
[2025-08-27 22:55] LABS: IMMATURE GRANULOCYTE # (AUTO) 0.1 (0.0-1.0); IMMATURE GRANULOCYTE % (AUTO) 0.4 % (0.0-5.0); RDW COEFFICIENT OF VARIATION 13.0 % (11.6-14.8)
[2025-08-27] MEDS: DECADRON IVP STA (23:05)
[2025-08-27] MEDS: LACTATED RINGERS 1,000 ML IV ONE (23:06)
[2025-08-27 23:08] LABS: VBG HCO3 29.8 (22-26); VBG OXYGEN SATURATION 94.6 (60-80); VBG PCO2 40.0 (40-50); VBG PH 7.48 (7.30-7.40); VBG PO2 68.0 (36-42)
[2025-08-27 23:09] LABS: CREATININE 0.8 mg/dL (0.60-1.30)
[2025-08-27] MEDS: DUONEB NEB STA ×2 (23:14→23:20)
[2025-08-27 23:15] LABS: MOLECULAR FLU A NEGATIVE BY NAAT (NEGATIVE); MOLECULAR FLU B NEGATIVE BY NAAT (NEGATIVE); SARS COV-2 RNA RAPID NAAT NEGATIVE (NEGATIVE)
[2025-08-27] MEDS: DOXY-100 100 MG in SODIUM CHLORIDE 100ML 100 ML IV ONE (23:24)
--- NOTE | 2025-08-27 23:27 | DI ---
EXAM: CHEST, ONE-VIEW HISTORY: Cough FINDINGS: Cardiac and mediastinal contours are normal. Pulmonary vasculature is normal. Consolidative opacity of the basilar left upper lobe. Bony thorax is unremarkable. IMPRESSION: Consolidated pneumonia in the basilar left upper lobe.
[2025-08-27] MEDS ORDERED: ZOFRAN SDV IVP PRN (23:38)
[2025-08-27] MEDS ORDERED: ROBITUSSIN DM SYRUP PO PRN (23:38)
[2025-08-27] MEDS ORDERED: TYLENOL PO PRN (23:38)
[2025-08-27] MEDS ORDERED: DUONEB NEB PRN (23:38)
[2025-08-27] MEDS ORDERED: TESSALON PERLES PO PRN (23:38)
[2025-08-28 00:56] VITALS: BMI 37.1
[2025-08-28] MEDS: ROCEPHIN 1 GM VIAL ONE (02:24)
[2025-08-28] MEDS: ROCEPHIN 1 GM VIAL IVP ONE (02:26)
[2025-08-28] MEDS: SOLU-MEDROL 40 MG IVP SCH (05:17)
[2025-08-28 05:38] LABS: IMMATURE GRANULOCYTE # (AUTO) 0.1 (0.0-1.0); IMMATURE GRANULOCYTE % (AUTO) 1.0 % (0.0-5.0); RDW COEFFICIENT OF VARIATION 12.6 % (11.6-14.8)
[2025-08-28 05:55] LABS: CREATININE 0.77 mg/dL (0.60-1.30)
[2025-08-28] MEDS ORDERED: ZANAFLEX PO PRN (08:43)
[2025-08-28] MEDS: PROTONIX PO SCH (09:00)
[2025-08-28] MEDS: DOXYCYCLINE PO SCH (09:00)
[2025-08-28] MEDS: NEURONTIN PO SCH ×2 (09:01→09:03)
[2025-08-28] MEDS: ALDACTONE PO SCH (09:02)
[2025-08-28] MEDS: NORVASC PO SCH (09:02)
[2025-08-28] MEDS: ZYRTEC PO SCH (09:02)
[2025-08-28] MEDS: COZAAR PO SCH (09:03)
[2025-08-28] MEDS: SYMBICORT 160-4.5 MCG INHALER IH SCH (09:03)
[2025-08-28] MEDS: SPIRIVA IH SCH (09:27)
[2025-08-28] MEDS: NORCO 7.5-325 PO PRN (09:32)
--- NOTE | 2025-08-28 12:43 | PCM ---
Date of Service Date Seen by Provider: 08/28/25 Time Seen by Provider: 09:00 Admit Day/Time Admission Date: 08/27/25 Admission Time: 23:40 Reason for Admission Chief Complaint: ACUTE HYPOXEMIC RESP FAILURE,COPD,EXACERBATION,PNA Hospital Provider Hospital Provider: QUINN JERONIMO PA-C, [facility] Primary Care Physician Primary Care Physician: KENDELL CINTRON APRN History of Present Illness History of Present Illness: Patient is a 50 year old female with pmhx of COPD, hypertension, vitamin d deficiency, chronic pain, GERD who presents to ER with worsening SOB and cough over last few days. Patient has had fever of 101 at home and chills. In ER was noted to be tachycardic, saturations of about 90% on RA, and wbc 15. CXR showing a left sided pneumonia. Patient given steroids, abx, breathing treatment. Placed on 2L. Admitted to [facility]. Has hx of smoking. Denies hospitalizations in past due to pneumonia. Feeling somewhat better today. Still requiring 2L. Case Discussed With Case Discussed With: Patient's case was discussed with the ER Physicians, Dr. Ching. [facility] Medical History Asthma J45.909 - Unspecified asthma, uncomplicated (ICD-10) History of skin cancer Z85.828 - Personal history of other malignant neoplasm of skin (ICD-10) Lumbar radiculopathy M54.16 - Radiculopathy, lumbar region (ICD-10) Surgical History vein ablation bilat legs 2016 Status post tonsillectomy 2015 Z90.89 - Acquired absence of other organs (ICD-10) Status post hysterectomy Z90.710 - Acquired absence of both cervix and uterus (ICD-10) Family History FATHER Hypertension Mother Hypertension Social History Smoking and tobacco status: Current every day smoker Tobacco type: cigarettes Smoking packs per day: 0.5 Smoking cigarettes per day: 10.0 Allergies Allergies Allergy/AdvReac Type Severity Reaction Status Date / Time ampicillin Allergy Intermediate rash Verified 08/27/25 22:17 Penicillins Allergy Intermediate rash Verified 08/27/25 22:17 clindamycin AdvReac Intermediate Unknown Verified 08/27/25 22:17 Current Medications Home Medications Acetaminophen (Acetaminophen 325 Mg Tablet) 650 mg PO Q4H PRN PRN Reason: Mild Pain Hydrocodone Bitart/Acetaminophen (Hydrocodone Bit/Acetaminophen 7.5/325 Mg Tablet) 1 tab PO Q6H PRN PRN Reason: MODERATE PAIN Last Admin: 08/28/25 09:32 Dose: 1 tab Albuterol/Ipratropium (Ipratropium/Albuterol Vial.Neb) 3 ml NEB RTQ4H PRN PRN Reason: Wheezing Amlodipine Besylate (Amlodipine Besylate 5 Mg Tablet) 10 mg PO DAILY [facility] Last Admin: 08/28/25 09:02 Dose: 10 mg Benzonatate (Benzonatate 100 Mg Capsule) 100 mg PO TID PRN PRN Reason: Cough Budesonide/Formoterol Fumarate (Budesonide/Formoterol Fumarate 160/4.5 Mcg Inhaler) 2 puff IH BID [facility] Last Admin: 08/28/25 09:03 Dose: 2 puff Cetirizine HCl (Cetirizine Hcl 10 Mg Tablet) 10 mg PO DAILY [facility] Last Admin: 08/28/25 09:02 Dose: 10 mg Doxycycline Hyclate (Doxycycline Hyclate 100 Mg Capsule) 100 mg PO Q12HR [facility] Stop: 09/01/25 21:01 Last Admin: 08/28/25 09:00 Dose: 100 mg Gabapentin (Gabapentin 100 Mg Capsule) 100 mg PO QID [facility] Last Admin: 08/28/25 12:41 Dose: 100 mg Gabapentin (Gabapentin 300 Mg Capsule) 300 mg PO QID [facility] Last Admin: 08/28/25 12:41 Dose: 300 mg Guaifenesin/Dextromethorphan (Guaifenesin/Dextromethorphan 200/20 Mg/10 Ml Cup) 10 ml PO Q4H PRN PRN Reason: Cough CEFTRIAXONE/D5W 1 GM PREMIX (Rocephin 1 Gm/50 Ml D5w) 1 gm in 50 mls @ 100 mls/hr IV BEDTIME [facility] Stop: 08/31/25 20:59 Losartan Potassium (Losartan Potassium 100 Mg Tablet) 100 mg PO DAILY [facility] Last Admin: 08/28/25 09:03 Dose: 100 mg Methylprednisolone Sodium Succinate (Methylprednisolone Sod Succ/Pf 40 Mg/Ml Vial) 40 mg IVP Q8HR [facility] Last Admin: 08/28/25 12:41 Dose: 40 mg Ondansetron HCl (Ondansetron Hcl/Pf 4 Mg/2 Ml Sdv) 4 mg IVP Q6H PRN PRN Reason: Nausea / Vomiting Pantoprazole Sodium (Pantoprazole Sodium 40 Mg Tablet.Dr) 40 mg PO QDAC2 [facility] Last Admin: 08/28/25 09:00 Dose: 40 mg Sodium Chloride (0.9% Sodium Chloride 10 Ml Disp.Syrin) 1 syr IVF PRN PRN PRN Reason: To flush IV Last Admin: 08/28/25 12:49 Dose: 1 syr Sodium Chloride (0.9% Sodium Chloride 10 Ml Disp.Syrin) 1 syr IVF Q8HR [facility] Spironolactone (Spironolactone 25 Mg Tablet) 50 mg PO DAILY [facility] Last Admin: 08/28/25 09:02 Dose: 50 mg Tiotropium [place] (Tiotropium [place] 18 Mcg Cap.W.Dev) 1 cap IH DAILY [facility] Last Admin: 08/28/25 09:27 Dose: Not Given Tizanidine HCl (Tizanidine Hcl 4 Mg Tablet) 4 mg PO Q8H PRN PRN Reason: muscle spasm terbinafine HCl 1 % topical cream 1 applic topical BID #30 grams 10/20/24 [Rx Confirmed 08/28/25] cetirizine 10 mg capsule (Allergy Relief (cetirizine)) 10 mg PO QDAY #30 caps 03/10/25 [Rx Confirmed 08/28/25] pantoprazole 40 mg tablet,delayed release (Protonix) 40 mg PO QDAY #30 tabs 03/16/25 [Rx Confirmed 08/28/25] albuterol sulfate 90 mcg/actuation aerosol inhaler 2 inh inhalation Q4H PRN miranda rtness of breath or wheezing #6.7 grams 06/09/25 [Rx Confirmed 08/28/25] budesonide-formoterol HFA 160 mcg-4.5 mcg/actuation aerosol inhaler (Symbicort) 2 puff inhalation BID #10.2 grams 06/09/25 [Rx Confirmed 08/28/25] losartan 100 mg tablet 100 mg PO DAILY #90 tabs 06/15/25 [Rx Confirmed 08/28/25] diclofenac sodium 25 mg tablet,delayed release 25 mg PO BID #60 tabs 07/13/25 [Rx Confirmed 08/27/25] ergocalciferol (vitamin D2) 1,250 mcg (50,000 unit) capsule (Vitamin D2) 1,250 mcg PO QWEEK #12 caps 07/13/25 [Rx Confirmed 08/28/25] gabapentin 400 mg capsule 400 mg PO QID #120 caps 07/13/25 [Rx Confirmed 08/28/25] tizanidine 4 mg tablet 4 mg PO Q8H PRN for muscle spasm #90 tabs 07/13/25 [Rx Confirmed 08/28/25] hydrocodone 7.5 mg-acetaminophen 325 mg tablet 1 tab PO Q6H PRN pain #120 tabs 08/11/25 [Rx Confirmed 08/28/25] amlodipine 10 mg tablet 10 mg PO QDAY #30 tabs 08/17/25 [Rx Confirmed 08/28/25] spironolactone 50 mg tablet 50 mg PO QDAY #30 tabs 08/17/25 [Rx Confirmed 08/28/25] umeclidinium 62.5 mcg/actuation blister powder for inhalation (Incruse Ellipta) 1 inh inhalation QDAY #30 ea 08/17/25 [Rx Confirmed 08/28/25] ammonium lactate 12 % lotion 1 applic topical DAILY 08/27/25 [History Confirmed 08/28/25] clobetasol 0.05 % topical cream 1 applic topical BID 08/27/25 [History Confirmed 08/28/25] mupirocin 2 % topical ointment 1 applic topical 2XD 08/27/25 [History Confirmed 08/28/25] Opioid Naive vs. Tolerant Does Patient Take Opioids?: Yes Is Patient Opioid Naive?: No What is Opioid Naive?: *Opioid Naive implies the patient is not already taking opioids or not chronically receiving opioids on a daily basis. *PRN dosing is not "usually" associated with tolerance. *Patients are at higher risk of over-sedation and aspiration. Is Patient Opioid Tolerant?: No What is Opioid Tolerant?: *Opioid Tolerance implies less than the expected response to an opioid. *Acquired tolerance is defined by the patient taking 60mg of oral morphine daily (or equianalgesic dose of another opioid) for 1 week or more. *Often associated with chronic pain. *May take more than usual dose to achieve desired pain control. Review of Systems Constitutional: Reports Fever and Fatigue Head: Reports Normocephalic and Atraumatic Cardiovascular: Denies Chest pain, Chest Pressure or Edema Respiratory: Reports Cough, Shortness of air and Wheeze Gastrointestinal: Reports Nausea; Denies Vomiting, Diarrhea, Abdominal pain or Melena Genitourinary: Denies Dysuria or Frequency Neurological: Denies Syncope Physical examination Most Recent Vital Signs: Most Recent Vital Signs Temperature 96.5 F L 08/28/25 10:00 Temperature Source Temporal Artery Scan 08/28/25 10:00 Temperature Source Temporal Artery Scan 08/27/25 22:09 Pulse Rate 102 H 08/28/25 10:00 Respiratory Rate 16 08/28/25 10:00 Blood Pressure 134/83 08/28/25 10:00 Blood Pressure Mean 100 08/28/25 10:00 Blood Pressure Left Arm 139/71 08/28/25 00:30 Blood Pressure Location Left Arm 08/28/25 10:00 Blood Pressure Position Supine 08/28/25 05:52 O2 Sat by Pulse Oximetry 95 08/28/25 10:00 Oxygen Delivery Method Nasal Cannula 08/28/25 10:00 Oxygen Flow Rate 2 08/28/25 10:00 Height 5 ft 3 in 08/28/25 00:30 Weight 95.1 kg 08/28/25 00:30 Telemetry Type Remote Telemetry 08/28/25 07:00 Telemetry Monitoring Continues 08/28/25 07:00 Telemetry Heart Rate 92 08/28/25 07:00 Telemetry SPO2 97 08/28/25 07:00 EKG LA Interval 0.17 08/28/25 07:00 EKG QRS Interval 0.08 08/28/25 07:00 Telemetry Strip Reading NSR 08/28/25 07:00 Appearance: Positive No Apparent Distress, Alert and Oriented x3 and Ill- Appearing Skin: Positive [place], Warm and Good Turgor HEENT: Positive Normocephalic and Atraumatic Neck: Positive Supple and Midline Trachea Chest/Lungs: Positive Symmetrical With Equal Breath Sounds and Wheezes (mild reno); Negative Rales or Rhonci Heart: Positive RRR GI/: Positive Soft, Nontender, Bowel Sounds Normal and No Distention Extremities: Negative Edema Neurological: Positive Cranial Nerves Intact, Alert, Oriented and Muscle Streng th 5/5 in Upper and Lower Extremities Bilaterally Psychiatric: Positive Oriented x4, Appropriate Mood, Appropriate Affect and Intact Memory Labs This Visit Labs This Visit: Labs This Visit 08/27/25 08/27/25 08/27/25 22:30 22:46 22:47 WBC 15.69 H RBC 4.41 Hgb 12.2 Hct 38.3 MCV 86.8 MCH 27.7 MCHC 31.9 RDW Coeff of Rosalina 13.0 Plt Count 254 Immature Gran % (Auto) 0.4 Neut % (Auto) 85.7 H Lymph % (Auto) 6.1 L [place] % (Auto) 7.4 Eos % (Auto) 0.1 Baso % (Auto) 0.3 Neut # (Auto) 13.5 H Lymph # (Auto) 1.0 [place] # (Auto) 1.2 Eos # (Auto) 0.0 Baso # (Auto) 0.1 Immature Gran # (Auto) 0.1 VBG pH 7.48 H VBG pCO2 40 VBG pO2 68 H VBG HCO3 29.8 H VBG O2 Saturation 94.6 H Sodium 134.4 L Potassium 3.94 Chloride 100.1 Carbon Dioxide 25.3 Anion Gap 12.94 BUN 10.4 Creatinine 0.80 Estimated GFR (MDRD) 77.00 BUN/Creatinine Ratio 13.00 Glucose 114.4 H Lactic Acid 0.75 Calcium 8.87 Magnesium Total Bilirubin 1.18 AST 28.2 ALT 16.8 Alkaline Phosphatase 65.7 Total Protein 7.67 Albumin 4.18 Globulin 3.49 Albumin/Globulin Ratio 1.19 Influ A Molecular Assay Negative by naat Influ B Molecular Assay Negative by naat SARS CoV-2 RNA Rapid EMMETT Negative 08/28/25 05:13 WBC 14.01 H RBC 4.55 Hgb 12.4 Hct 39.8 MCV 87.5 MCH 27.3 MCHC 31.2 L RDW Coeff of Rosalina 12.6 Plt Count 244 Immature Gran % (Auto) 1.0 Neut % (Auto) 92.4 H Lymph % (Auto) 4.4 L [place] % (Auto) 2.1 Eos % (Auto) 0.0 Baso % (Auto) 0.1 Neut # (Auto) 13.0 H Lymph # (Auto) 0.6 [place] # (Auto) 0.3 L Eos # (Auto) 0.0 Baso # (Auto) 0.0 Immature Gran # (Auto) 0.1 VBG pH VBG pCO2 VBG pO2 VBG HCO3 VBG O2 Saturation Sodium 137.1 Potassium 4.24 Chloride 100.7 Carbon Dioxide 25.4 Anion Gap 15.24 BUN 11.2 Creatinine 0.77 Estimated GFR (MDRD) 80.00 BUN/Creatinine Ratio 14.54 Glucose 155.9 H Lactic Acid Calcium 8.98 Magnesium 2.19 Total Bilirubin 0.79 AST 18.7 ALT 17.8 Alkaline Phosphatase 66.8 Total Protein 7.54 Albumin 4.16 Globulin 3.38 Albumin/Globulin Ratio 1.23 Influ A Molecular Assay Influ B Molecular Assay SARS CoV-2 RNA Rapid EMMETT Microbiology This Visit 08/27/25 22:30 Throat Group A Strep Molecular Assay - Final Imaging Imaging: EXAM: CHEST, ONE-VIEW HISTORY: Cough FINDINGS: Cardiac and mediastinal contours are normal. Pulmonary vasculature is normal. Consolidative opacity of the basilar left upper lobe. Bony thorax is unremarkable. IMPRESSION: Consolidated pneumonia in the basilar left upper lobe. Review Statement Review Statement: I have independently reviewed and interpreted the labs/EKGs/imaging that were ordered by the ER provider. I have reviewed all outside records that are available currently in our EMR including imaging/notes/labs from previous visits. Plan Plan: 1. Left sided community acquired pneumonia - Rocephin, doxy, steroids, duonebs. Wean O2 when able. Strep pneumo and legionella urine antigen ordered. 2. Acute COPD exacerbation - Improved today, cont abx/steroids/duonebs 3. Acute hypoxic respiratory failure - Wean O2 when able 4. Hypertension - Cont home meds 5. Chronic pain - Cont home meds 6. GERD - Cont home meds DVT Prophylaxis: Ambulation Time Spent: Greater than 80 minutes spent with patient, 50% of the time spent with this patient was devoted to counseling and coordination of care. Advanced Care Plannin minutes spent discussing advance care planning. Smoking Cessation: 3 minutes spent discussing smoking cessation. Admit to: inpatient Discussed Plan of Care with Dr. Avery [place]. Medications Medication Orders: Medications Ordered Category Date Time Status 0.9 % Sodium Chloride [Saline Flush] Meds 08/27/25 22:28 Active 1 syr IVF PRN PRN Acetaminophen [Tylenol] Meds 08/27/25 23:38 Active 650 mg PO Q4H PRN Amlodipine Besylate [Norvasc] Meds 08/28/25 09:00 Active 10 mg PO DAILY Benzonatate [Tessalon Perles] Meds 08/27/25 23:38 Active 100 mg PO TID PRN Budesonide/Formoterol Fumarate [Symbicort 160-4.5 Mcg Meds 08/28/25 09:00 Active Inhaler] 2 puff IH BID Ceftriaxone/D5w 1 gm Premix [Rocephin 1 gm/50 ml D5w] Meds 08/28/25 21:00 Active 1 gm in 50 ml IV BEDTIME Cetirizine HCl [Zyrtec] Meds 08/28/25 09:00 Active 10 mg PO DAILY Doxycycline Hyclate [Doxycycline] Meds 08/28/25 09:00 Active 100 mg PO Q12HR Gabapentin [Neurontin] Meds 08/28/25 09:00 Active 100 mg PO QID Gabapentin [Neurontin] Meds 08/28/25 09:00 Active 300 mg PO QID Guaifenesin/Dextromethorphan [Robitussin Dm Syrup] Meds 08/27/25 23:38 Active 10 ml PO Q4H PRN Hydrocodone Bit/Acetaminophen [[place] 7.5-325] Meds 08/28/25 08:43 Active 1 tab PO Q6H PRN MODPAIN MODERATE PAIN Ipratropium/Albuterol Neb [Duoneb] Meds 08/27/25 23:38 Active 3 ml NEB RTQ4H PRN Losartan Potassium [Cozaar] Meds 08/28/25 09:00 Active 100 mg PO DAILY Methylprednisolone Sod Succ/Pf [Solu-Medrol 40 mg] Meds 08/28/25 05:00 Active 40 mg IVP Q8HR Ondansetron HCl/Pf [Zofran Sdv] Meds 08/27/25 23:38 Active 4 mg IVP Q6H PRN Pantoprazole Sodium [Protonix] Meds 08/28/25 09:00 Active 40 mg PO QDAC2 Spironolactone [Aldactone] Meds 08/28/25 09:00 Active 50 mg PO DAILY Tiotropium [place] [Spiriva] Meds 08/28/25 09:00 Active 1 cap IH DAILY Tizanidine HCl [Zanaflex] Meds 08/28/25 08:43 Active 4 mg PO Q8H PRN muscle spasm muscle spasm
[2025-08-28] MEDS: ROCEPHIN 1 GM/50 ML D5W 1 GM/50 ML BAG IV SCH (20:40)
[2025-08-29 05:37] LABS: IMMATURE GRANULOCYTE # (AUTO) 0.5 (0.0-1.0); IMMATURE GRANULOCYTE % (AUTO) 2.3 % (0.0-5.0); RDW COEFFICIENT OF VARIATION 12.6 % (11.6-14.8)
[2025-08-29 05:47] LABS: CREATININE 0.62 mg/dL (0.60-1.30)
[2025-08-29 09:50] VITALS: BP 111/69; PULSE 88; RESP 16; TEMP 97.8
--- NOTE | 2025-08-29 11:16 | DCSUM ---
Admission Date Admission Date: 08/27/25 Discharge Date Discharge Date: 08/29/25 Admission Diagnosis Admission Diagnosis: 1. Left sided community acquired pneumonia 2. Acute COPD exacerbation 3. Acute hypoxic respiratory failure Discharge Diagnosis Discharge Diagnosis: 1. Left sided community acquired pneumonia 2. Acute COPD exacerbation 3. Acute hypoxic respiratory failure - resolved 4. Hypertension - Cont home meds 5. Chronic pain - Cont home meds 6. GERD - Cont home meds Hospital Provider Hospital Provider: QUINN JERONIMO PA-C, [facility] Primary Care Physician Primary Care Physician: KENDELL CINTRON APRN Summary of History and Physical Summary of History and Physical: Patient is a 50 year old female with pmhx of COPD, hypertension, vitamin d deficiency, chronic pain, GERD who presents to ER with worsening SOB and cough over last few days. Patient has had fever of 101 at home and chills. In ER was noted to be tachycardic, saturations of about 90% on RA, and wbc 15. CXR showing a left sided pneumonia. Patient given steroids, abx, breathing treatment. Placed on 2L. Admitted to [facility]. Has hx of smoking. Denies hospitalizations in past due to pneumonia. Feeling somewhat better today. Still requiring 2L. Hospital Course Subjective: Patient treated with abx/steroids/duonebs. Weaned to RA. Did not qualify for home O2. Feeling better, still has a cough. Overall looks improved clinically. Will dc home on remainder of abx and steroids. F/u with pcp. Patient agrees to plan of care. Discussed wbc high, likely due to steroids, repeat cbc with pcp. Consider outpatient pna vaccine should she qualify for it. Appearance: Pleasant, No Apparent Distress and Alert HEENT: MMM and Supple CVS: Other (RRR) Abdomen: Soft, Non-Tender and No Distention Respiratory: Other (+mild wheezing, nonlabored breathing, speaks full sentences ) Extremities: No Edema Vital Signs: Most Recent Vital Signs Temperature 97.8 F 08/29/25 09:50 Temperature Source Temporal Artery Scan 08/29/25 09:50 Temperature Source Temporal Artery Scan 08/27/25 22:09 Pulse Rate 88 08/29/25 09:50 Respiratory Rate 16 08/29/25 09:50 Blood Pressure 111/69 08/29/25 09:50 Blood Pressure Mean 83 08/29/25 09:50 Blood Pressure Left Arm 139/71 08/28/25 00:30 Blood Pressure Location Left Arm 08/29/25 09:50 Blood Pressure Position Supine 08/29/25 09:50 O2 Sat by Pulse Oximetry 94 L 08/29/25 10:00 Oxygen Delivery Method Room Air 08/29/25 10:00 Oxygen Flow Rate 2 08/29/25 08:00 Height 5 ft 3 in 08/28/25 00:30 Weight 95.1 kg 08/28/25 00:30 Telemetry Type Remote Telemetry 08/29/25 07:00 Telemetry Monitoring Continues 08/29/25 07:00 Telemetry Heart Rate 79 08/29/25 07:00 Telemetry SPO2 98 08/28/25 13:00 EKG UT Interval 0.14 08/29/25 07:00 EKG QRS Interval 0.06 08/29/25 07:00 Telemetry Strip Reading SR 08/29/25 07:00 Imaging: EXAM: CHEST, ONE-VIEW HISTORY: Cough FINDINGS: Cardiac and mediastinal contours are normal. Pulmonary vasculature is normal. Consolidative opacity of the basilar left upper lobe. Bony thorax is unremarkable. IMPRESSION: Consolidated pneumonia in the basilar left upper lobe. Lab Results Last 24 Hours: 08/29/25 05:06 WBC 20.94 H D RBC 4.54 Hgb 12.3 Hct 39.6 MCV 87.2 MCH 27.1 MCHC 31.1 L RDW Coeff of Rosal[place] 12.6 Plt Count 295 Immature Gran % (Auto) 2.3 Neut % (Auto) 90.8 H Lymph % (Auto) 3.7 L [place] % (Auto) 3.1 Eos % (Auto) 0.0 Baso % (Auto) 0.1 Neut # (Auto) 19.0 H Lymph # (Auto) 0.8 [place] # (Auto) 0.7 Eos # (Auto) 0.0 Baso # (Auto) 0.0 Immature Gran # (Auto) 0.5 Sodium 137.9 Potassium 4.01 Chloride 102.5 Carbon Dioxide 26.3 Anion Gap 13.11 BUN 16.5 Creatinine 0.62 Estimated GFR (MDRD) 103.00 BUN/Creatinine Ratio 26.61 Glucose 187.4 H Calcium 8.86 Magnesium 2.50 H Total Bilirubin 0.41 AST 23.9 ALT 19.4 Alkaline Phosphatase 68.3 Total Protein 7.45 Albumin 3.94 Globulin 3.51 Albumin/Globulin Ratio 1.12 Discharge Instructions Discharge Planning: Discharge Planning > [address] Avery [place] Discharge Medications: Medications at Discharge (Home Meds & RX) terbinafine HCl 1 % topical cream 1 applic topical BID #30 grams 10/20/24 cetirizine 10 mg capsule (Allergy Relief (cetirizine)) 10 mg PO QDAY #30 caps 03/10/25 pantoprazole 40 mg tablet,delayed release (Protonix) 40 mg PO QDAY #30 tabs 03/16/25 albuterol sulfate 90 mcg/actuation aerosol inhaler 2 inh inhalation Q4H PRN shortness of breath or wheezing #6.7 grams 06/09/25 budesonide-formoterol HFA 160 mcg-4.5 mcg/actuation aerosol inhaler (Symbicort) 2 puff inhalation BID #10.2 grams 06/09/25 losartan 100 mg tablet 100 mg PO DAILY #90 tabs 06/15/25 diclofenac sodium 25 mg tablet,delayed release 25 mg PO BID #60 tabs 07/13/25 ergocalciferol (vitamin D2) 1,250 mcg (50,000 unit) capsule (Vitamin D2) 1,250 mcg PO QWEEK #12 caps 07/13/25 gabapentin 400 mg capsule 400 mg PO QID #120 caps 07/13/25 tizanidine 4 mg tablet 4 mg PO Q8H PRN for muscle spasm #90 tabs 07/13/25 hydrocodone 7.5 mg-acetaminophen 325 mg tablet 1 tab PO Q6H PRN pain #120 tabs 08/11/25 amlodipine 10 mg tablet 10 mg PO QDAY #30 tabs 08/17/25 spironolactone 50 mg tablet 50 mg PO QDAY #30 tabs 08/17/25 umeclidinium 62.5 mcg/actuation blister powder for inhalation (Incruse Ellipta) 1 inh inhalation QDAY #30 ea 08/17/25 ammonium lactate 12 % lotion 1 applic topical DAILY 08/27/25 clobetasol 0.05 % topical cream 1 applic topical BID 08/27/25 mupirocin 2 % topical ointment 1 applic topical 2XD 08/27/25 cefdinir 300 mg capsule 300 mg PO BID 3 days #6 caps 08/29/25 doxycycline hyclate 100 mg capsule 100 mg PO Q12HR 3 days #6 caps 08/29/25 prednisone 20 mg tablet 20 mg PO BID 2 days #4 tabs 08/29/25 Discharge Plan Discharge Discharge Orders: Discharge Patient (ONCE); Ordered 08/29/25 Ordered By: QUINN JERONIMO Activity Restrictions/Additional Instructions: DISCHARGE TO HOME DX: PNEUMONIA FINISH ANTIBIOTICS AND STEROIDS F/U WITH PCP NEXT WEEK RETURN WITH WORSENING SYMPTOMS ACTIVITY: TOLERATED Instructions: COPD (Chronic Obstructive Pulmonary Disease) (ED), Community Acquired Pneumonia (GEN) Patient Disposition: HOME SELF-CARE Prescriptions: New doxycycline hyclate 100 mg Capsule 100 mg PO Q12HR 3 Days Qty: 6 0RF Rx Instructions: Start tonight cefdinir 300 mg Capsule 300 mg PO BID 3 Days Qty: 6 0RF Rx Instructions: start tonight prednisone 20 mg tablet 20 mg PO BID 2 Days Qty: 4 0RF Continued losartan 100 mg tablet 100 mg PO DAILY Qty: 90 2RF hydrocodone-acetaminophen 7.5-325 mg tablet 1 tab PO Q6H PRN (Reason: pain) Qty: 120 0RF spironolactone 50 mg tablet 50 mg PO QDAY Qty: 30 3RF amlodipine 10 mg tablet 10 mg PO QDAY Qty: 30 3RF Incruse Ellipta 62.5 mcg/actuation blister with device 1 inh inhalation QDAY Qty: 30 3RF ammonium lactate 12 % lotion 1 applic topical DAILY clobetasol 0.05 % cream 1 applic topical BID mupirocin 2 % ointment 1 applic topical 2XD Allergy Relief (cetirizine) 10 mg capsule 10 mg PO QDAY Qty: 30 3RF budesonide-formoterol [Symbicort] 160-4.5 mcg/actuation HFA aerosol inhaler 2 puff inhalation BID Qty: 10.2 3RF albuterol sulfate 90 mcg/actuation HFA aerosol inhaler 2 inh inhalation Q4H PRN (Reason: shortness of breath or wheezing) Qty: 6.7 3RF terbinafine HCl 1 % cream 1 applic topical BID Qty: 30 3RF pantoprazole [Protonix] 40 mg tablet,delayed release (DR/EC) 40 mg PO QDAY Qty: 30 1RF gabapentin 400 mg capsule 400 mg PO QID Qty: 120 3RF diclofenac sodium 25 mg tablet,delayed release (DR/EC) 25 mg PO BID Qty: 60 3RF tizanidine 4 mg tablet 4 mg PO Q8H PRN (Reason: for muscle spasm) Qty: 90 0RF ergocalciferol (vitamin D2) [Vitamin D2] 1,250 mcg (50,000 unit) capsule 1,250 mcg PO QWEEK Qty: 12 0RF Rx Instructions: Take once a week for 12 weeks Did you review [place] [employer] for ALL controlled substances?: Not Applicable Discussed opioids are addictive and Narcan is available by prescription or from pharmacy.: No Condition: Stable Referrals: KENDELL CINTRON APRN [Primary Care Provider, NURSE PRACTITIONER] - 09/09/25 9:00 am
== END 2025-08-29 13:40 | disposition home or self-care (01) ==
LOC: ED 22:05 → MEDSURG B 23:58
PROVIDERS: ADMIT Hospitalist; ATTEND Physician Assistant